=== PATIENT | female | born 1995 | race Caucasian/White ===

== ENCOUNTER 2017-01-25 18:18 | Emergency (ER) | payer OTHER ==
[~2017-01-25] VITALS: Ht 160 cm; Wt 60.0 kg
[2017-01-25 20:05] VITALS: BP 123/62
== END 2017-01-25 20:05 | disposition home or self-care (01) ==
LOC: ED 18:18
DX: J02.9 Acute pharyngitis, unspecified (principal)

== ENCOUNTER 2017-04-16 22:04 | Emergency (ER) | payer OTHER ==
[2017-04-16 23:37] VITALS: BP 120/75
== END 2017-04-16 23:37 | disposition home or self-care (01) ==
LOC: ED 22:04
DX: L25.9 Unspecified contact dermatitis, unspecified cause (principal)
CPT/HCPCS: J1100

== ENCOUNTER 2019-02-07 19:34 | Emergency (ER) | payer OTHER ==
[~2019-02-07] VITALS: Ht 160 cm; Wt 59.4 kg
[2019-02-07 19:49] VITALS: Ht 160 cm; Wt 59.4 kg
[2019-02-07 22:40] VITALS: BP 114/71
== END 2019-02-07 22:40 | disposition home or self-care (01) ==
LOC: ED 19:34
DX: H66.91 Otitis media, unspecified, right ear (principal)

== ENCOUNTER 2020-03-02 00:31 | Emergency (ER) | payer OTHER ==
[~2020-03-02] VITALS: Ht 160 cm; Wt 64.9 kg
[2020-03-02 02:46] VITALS: BP 131/90
== END 2020-03-02 02:46 | disposition home or self-care (01) ==
LOC: ED 00:31
DX: O9A.211 Injury, poisoning and certain other consequences of external causes complicating pregnancy, first trimester (principal); S93.401A Sprain of unspecified ligament of right ankle, initial encounter; Z3A.01 Less than 8 weeks gestation of pregnancy
CPT/HCPCS: Q0092